=== PATIENT | female | born 1990 | race Caucasian/White ===

== ENCOUNTER 2020-12-16 21:16 | Inpatient (IN) ==
[~2020-12-16 21:16] MED LIST: CeFAZolin 2,000 MG/50 ML BAG IVPB ONE; Famotidine 20 MG/2 ML VIAL IVP ONE; Metoclopramide 10 MG/2 ML VIAL IVP ONE; Ringers Solution, Lactated 1,000 ML IVC ONE
[2020-12-16] MEDS ORDERED: Azithromycin 500 MG in 0.9 % Sodium Chloride 250 ML IVPB ONE (21:20)
[2020-12-16] MEDS ORDERED: Ringers Solution, Lactated 1,000 ML IVC SCH (21:30)
[2020-12-16] MEDS ORDERED: Ringers Solution, Lactated 1,000 ML ONE (21:30)
[2020-12-16] MEDS ORDERED: Oxytocin 20 units/ LR 1000 mL 20 UNIT/1,000 ML BAG IVC SCH (21:30)
[2020-12-16] MEDS ORDERED: Ondansetron 4 MG/2 ML VIAL ONE (21:52)
[2020-12-16] MEDS ORDERED: *HR* Propofol 200 MG/20 ML VIAL IVP ONE (21:52)
[2020-12-16] MEDS ORDERED: Dexamethasone 4 MG/ML VIAL ONE (21:52)
[2020-12-16] MEDS ORDERED: *HR* FentaNYL (PF) 100 MCG/2 ML VIAL ONE ×3 (21:52→22:22)
[2020-12-16] MEDS ORDERED: Lidocaine -MPF 2% 5 ML VIAL ONE (21:53)
[2020-12-16] MEDS ORDERED: *HR* Succinylcholine 200 MG/10 ML VIAL IVP ONE (21:53)
[2020-12-16] MEDS ORDERED: *HR* HYDROMORPHONE 2 MG/ML VIAL ONE (21:55)
[2020-12-16] MEDS ORDERED: Acetaminophen IV 1,000 MG/100 ML BAG IVPB ONE (21:56)
[2020-12-16 22:11] LABS: Basophils % 0.3 %; Eosinophils # 0.1 K/mcL (0.0-0.6); Eosinophils % 0.8 %; Hematocrit 31.6 % (35.3-44.9); Hemoglobin 9.6 g/dL (11.5-15.4); Immature Granulocytes % 0.9 % (0-4); Lymphocytes # 1.9 K/mcL (0.6-4.6); Mean Corpuscular HGB Conc 30.4 g/dL (31.6-35.5); Mean Corpuscular Hemoglobin 25.1 pg (28.0-33.3); Mean Corpuscular Volume 82.5 fL (83.0-100.0); Mean Platelet Volume 12.4 fL (9.4-12.4); Monocytes # 0.9 K/mcL (0.0-1.3); Monocytes % 7.8 %; Neutrophils # 8.8 K/mcL (1.6-8.9); Nucleated Red Blood Cells 0.4 /100 WBC (0); Platelet Count 229 K/mcL (140-400); Red Blood Count 3.83 M/mcL (3.82-4.97); Red Cell Distribution Width 14.1 % (11.5-14.5); Segmented Neutrophils % 74.2 %; White Blood Count 11.9 K/mcL (4.3-11.1)
[2020-12-16] MEDS ORDERED: *HR* OxyCODONE Immed Rel 5 MG TABLET PO PRN (22:14)
[2020-12-16] MEDS ORDERED: Ondansetron 4 MG/2 ML VIAL IVP PRN (22:14)
[2020-12-16 22:20] LABS: Creatinine,Urine 45 mg/dL
[2020-12-16 22:28] LABS: Amphetamine Screen,Urine Positive ng/mL (Cutoff=1000); Barbiturate Screen,Urine Negative ng/mL (Cutoff=200); Benzodiazepines Screen,Urine Negative ng/mL (Cutoff=200); Cannabinoid Screen,Urine Negative ng/mL (Cutoff = 50); Cocaine Screen,Urine Negative ng/mL (Cutoff= 300); Opiate Screen,Urine Negative ng/mL (Cutoff=300); Phencyclidine Screen,Urine Negative ng/mL (Cutoff=25)
[2020-12-16 22:31] LABS: Alanine Aminotransferase 15 Units/L (7-52); Aspartate Amino Transferase 26 Units/L (13-39); BUN/Creatinine Ratio 16 (6-26); Blood Urea Nitrogen 12 mg/dL (6-20); Lactate Dehydrogenase 253 Units/L (140-271); Uric Acid 6.1 mg/dL (2.3-7.6); eGFR For African Americans > 60 (> 60); eGFR For Non-African Americans > 60 (> 60)
[2020-12-16 23:31] LABS: Adenovirus Not Detected (Not Detect); Bordetella Pertussis Not Detected (Not Detect); Chlamydophila pneumoniae Not Detected (Not Detect); Coronavirus 229E Not Detected (Not Detect); Coronavirus HKU1 Not Detected (Not Detect); Coronavirus NL63 Not Detected (Not Detect); Coronavirus OC43 Not Detected (Not Detect); Human Metapneumovirus Not Detected (Not Detect); Human Rhinovirus/Enterovirus Not Detected (Not Detect); Influenza A Subtype 2009 H1 Not Detected (Not Detect); Influenza B Not Detected (Not Detect); Mycoplasma pneumoniae Not Detected (Not Detect); Parainfluenza Virus 1 Not Detected (Not Detect); Parainfluenza Virus 2 Not Detected (Not Detect); Parainfluenza Virus 3 Not Detected (Not Detect); Parainfluenza Virus 4 Not Detected (Not Detect); Respiratory Syncytial Virus Not Detected (Not Detect); SARS-CoV-2 Not Detected (Not Detect)
[2020-12-16] MEDS: *HR* HYDROmorphone (PF) 1 MG/ML SYRINGE IVP PRN (23:31)
[2020-12-17] MEDS: *HR* HYDROmorphone (PF) 1 MG/ML SYRINGE IVP PRN (00:41)
[2020-12-17] MEDS ORDERED: Sennosides 8.6 MG TABLET PO PRN (01:19)
[2020-12-17] MEDS ORDERED: Simethicone 80 MG TAB.CHEW PO PRN (01:19)
[2020-12-17] MEDS ORDERED: Metoclopramide 10 MG/2 ML VIAL IVP PRN (01:19)
[2020-12-17] MEDS ORDERED: Ondansetron 4 MG/2 ML VIAL IVP PRN (01:19)
[2020-12-17] MEDS ORDERED: Naloxone 0.4 MG/ML INJ IVP PRN (01:19)
[2020-12-17] MEDS ORDERED: *HR* OxyCODONE Immed Rel 5 MG TABLET PO PRN (01:19)
[2020-12-17] MEDS ORDERED: Oxytocin 20 units/ LR 1000 mL 20 UNIT/1,000 ML BAG IVC SCH (01:19)
[2020-12-17] MEDS ORDERED: *HR* Labetalol 20 MG/4 ML SYRINGE IVP PRN (01:19)
[2020-12-17] MEDS: Magnesium Sulf 20 gm/SW 500mL 20 GM/500 ML IV.SOLN IVC SCH ×2 (02:21→12:41)
[2020-12-17 05:45] LABS: Basophils % 0.1 %; Hematocrit 25.2 % (35.3-44.9); Immature Granulocytes % 0.6 % (0-4); Lymphocytes % 5.2 %; Mean Corpuscular HGB Conc 30.6 g/dL (31.6-35.5); Mean Corpuscular Hemoglobin 25.1 pg (28.0-33.3); Mean Corpuscular Volume 82.1 fL (83.0-100.0); Mean Platelet Volume 12.8 fL (9.4-12.4); Monocytes # 0.8 K/mcL (0.0-1.3); Monocytes % 3.8 %; Nucleated Red Blood Cells 0.1 /100 WBC (0); Platelet Count 207 K/mcL (140-400); Red Blood Count 3.07 M/mcL (3.82-4.97); Red Cell Distribution Width 14.1 % (11.5-14.5); Segmented Neutrophils % 90.3 %
[2020-12-17 06:04] LABS: Hepatitis B Surface Antigen Nonreactive (Nonreactive)
[2020-12-17 06:11] LABS: Rubella IgG Antibody POSITIVE (POSITIVE); Varicella Zoster IgG Antibody Positive
[2020-12-17 06:15] LABS: Hemoglobin 7.7 g/dL (11.5-15.4); White Blood Count 19.9 K/mcL (4.3-11.1)
[2020-12-17 06:33] LABS: HIV-1&2 Antibody & p24 Ag Nonreactive (Nonreactive)
[2020-12-17] MEDS: Prenatal Vit/FA 1 EACH TABLET PO SCH (08:20)
[2020-12-17] MEDS: cephALEXin 500 MG CAPSULE PO SCH ×3 (08:20→21:43)
[2020-12-17] MEDS: metroNIDAZOLE 500 MG TABLET PO SCH ×3 (08:20→21:43)
[2020-12-17] MEDS: Ibuprofen 600 MG TABLET PO PRN ×2 (09:24→21:43)
[2020-12-17] MEDS: Acetaminophen 325 MG TABLET PO PRN ×2 (09:25→21:44)
[2020-12-17] MEDS ORDERED: *HR* Buprenorphine HCl 8 MG TAB.SUBL SL SCH (12:30)
[2020-12-17] MEDS: Nicotine 21 MG PATCH.TD24 TD SCH (17:51)
[2020-12-17] MEDS: *HR* Buprenorphine HCl 8 MG TAB.SUBL SL SCH (21:44)
[2020-12-18] MEDS: Acetaminophen 325 MG TABLET PO PRN (06:02)
[2020-12-18] MEDS: Ibuprofen 600 MG TABLET PO PRN ×3 (06:02→20:55)
[2020-12-18] MEDS: Nicotine 21 MG PATCH.TD24 TD SCH (08:26)
[2020-12-18] MEDS: *HR* Buprenorphine HCl 8 MG TAB.SUBL SL SCH ×2 (08:27→20:56)
[2020-12-18] MEDS: metroNIDAZOLE 500 MG TABLET PO SCH ×3 (08:27→20:56)
[2020-12-18] MEDS: cephALEXin 500 MG CAPSULE PO SCH ×3 (08:27→20:56)
[2020-12-18] MEDS: Prenatal Vit/FA 1 EACH TABLET PO SCH (08:27)
[2020-12-18 10:44] LABS: Basophils % 0.2 %; Eosinophils # 0.1 K/mcL (0.0-0.6); Eosinophils % 0.7 %; Hematocrit 20.8 % (35.3-44.9); Hemoglobin 6.4 g/dL (11.5-15.4); Lymphocytes # 2.4 K/mcL (0.6-4.6); Lymphocytes % 19.5 %; Mean Corpuscular HGB Conc 30.8 g/dL (31.6-35.5); Mean Corpuscular Hemoglobin 25.5 pg (28.0-33.3); Mean Corpuscular Volume 82.9 fL (83.0-100.0); Mean Platelet Volume 12.2 fL (9.4-12.4); Monocytes # 0.6 K/mcL (0.0-1.3); Monocytes % 4.5 %; Neutrophils # 9.1 K/mcL (1.6-8.9); Nucleated Red Blood Cells 0.2 /100 WBC (0); Platelet Count 196 K/mcL (140-400); Red Blood Count 2.51 M/mcL (3.82-4.97); Red Cell Distribution Width 14.6 % (11.5-14.5); Segmented Neutrophils % 74.1 %; White Blood Count 12.2 K/mcL (4.3-11.1)
[2020-12-18] MEDS ORDERED: 0.9 % Sodium Chloride 250 ML ONE ×2 (13:19→17:12)
[2020-12-18 22:08] VITALS: BP 148/93
== END 2020-12-18 22:30 | disposition left against medical advice (07) | DRG 540 ==
LOC: 1NENULAB → 1NENUOBS 12-17 01:22
PROVIDERS: ADMIT Advanced Practice Midwife; ATTEND Advanced Practice Midwife